=== PATIENT | male | born 1990 | race Caucasian/White ===

== ENCOUNTER 2017-02-17 08:04 | Outpatient (RCR) | payer OTHER ==
[~2017-02-17 08:04] MED LIST: ALEVE
== END 2017-03-22 14:03 | disposition home or self-care (01) ==
LOC: WSOH 08:04
DX: S76.312A Strain of muscle, fascia and tendon of the posterior muscle group at thigh level, left thigh, initial encounter (principal); C81.90 Hodgkin lymphoma, unspecified, unspecified site; X50.1XXA Overexertion from prolonged static or awkward postures, initial encounter; Y99.0 Civilian activity done for income or pay